=== PATIENT | female | born 1955 | race Caucasian/White ===

== ENCOUNTER 2019-09-05 10:56 | Outpatient (RCR) | payer BC, SELFPAY | END 2019-09-05 23:59 | disposition home or self-care (01) | LOC: ANHAUDIO 10:56 | PROVIDERS: PCP Family Medicine | DX: Z46.1 Encounter for fitting and adjustment of hearing aid (principal) | CPT/HCPCS: 92593 ==

== ENCOUNTER 2020-02-08 09:03 | Outpatient (CLI) | payer BC, SELFPAY | END 2020-02-08 09:04 | disposition home or self-care (01) | PROVIDERS: PCP Family Medicine; Visit Provider Family Medicine | DX: Z01.10 Encounter for examination of ears and hearing without abnormal findings (principal); H90.3 Sensorineural hearing loss, bilateral | CPT/HCPCS: 92557; 92567 ==

== ENCOUNTER 2021-06-01 08:40 | Outpatient (CLI) | payer MEDICARE, SELFPAY ==
--- NOTE | ~2021-06-01 | MM_ITS ---
EXAMINATION: MM screening sg BI w osbaldo HISTORY: Screening mammogram TECHNIQUE: Craniocaudal and mediolateral oblique 3-D tomosynthesis images were obtained and synthetic 2-D images were generated. CAD analysis was submitted and interpreted. COMPARISON: No prior mammogram is available for comparison at this institution. BREAST PARENCHYMAL COMPOSITION: There are scattered areas of fibroglandular density. FINDINGS: RIGHT BREAST: There is possible architectural distortion in the posterior third of upper outer quadra nt of the breasts. LEFT BREAST: There is a possible mass in the posterior third of the slightly outer breast. IMPRESSION: 1. Bilateral breast findings as described above which may represent the patient's baseline however no comparison is currently available. 2. Comparison with prior mammograms is necessary. BI-RADS Category 0: Incomplete: Needs comparison with prior mammograms. Reviewed, dictated and finalized at location A. OR SOFTWARE ANALYST IMPRESSION: 1. Bilateral breast findings as described above which may represent the patient 's baseline however no comparison is currently available. 2. Comparison with prior mammograms is necessary. BI-RADS Category 0: Incomplete: Needs comparison with prior mammograms.
== END 2021-06-01 08:41 | disposition home or self-care (01) ==
LOC: ANHIMG 08:42
PROVIDERS: PCP Family Medicine; Visit Provider Physician Assistant
DX: Z12.31 Encounter for screening mammogram for malignant neoplasm of breast (principal); R92.8 Other abnormal and inconclusive findings on diagnostic imaging of breast
CPT/HCPCS: 77063; 77067

== ENCOUNTER 2021-06-26 00:28 | Day surgery (SDC) | payer MEDICARE, SELFPAY ==
[2021-06-10 14:49] VITALS: BMI 24.5
--- NOTE | 2021-06-26 07:32 | WPDANESEPPF ---
Anes - Initial Pre Proc Eval Procedure: Operation Date: 06/26/21 11:00 Proposed Procedures p Screening Colonoscopy - Fransisco Valentine MD Date/Time: 06/26/21 07:32 Surgeon: Fransisco Valentine MD Pre Op Diagnosis: neoplasm screening Patient Data Age: 66 Gender: F Height: 1.55 m Weight: 59 kg Allergies Allergy/AdvReac Type Severity Reaction Status Date / Time methimazole Allergy rash Verified 06/26/21 09:46 Home Medications Medication Instructions Recorded Confirmed Type calcium carbonate 600 mg calcium 630 mg PO DAILY tablet 03/06/20 06/26/21 History (1,500 mg) tablet cholecalciferol (vitamin D3) 25 1,500 unit PO DAILY tablet 03/06/20 06/26/21 History mcg (1,000 unit) tablet fluticasone propionate 50 2 spray NASAL DAILY 03/06/20 06/26/21 History mcg/actuation nasal spray,suspension propylthiouracil 50 mg tablet 25 mg PO DAILY tablet 03/06/20 06/26/21 History albuterol sulfate 90 mcg/actuation 2 puff INHALATION Q4H PRN #8.5 gm 09/03/20 06/26/21 Rx aerosol inhaler atorvastatin 10 mg tablet 10 mg PO DAILY #90 tablet 03/30/21 06/26/21 Rx omega-3 fatty acids 1,000 mg 2,000 mg PO DAILY cap 03/30/21 06/26/21 History capsule Patient hx anesthesia problems: none Family hx anesthesia problems: none Results Review: All pre-operative results and documents have been reviewed as part of the pre-operative evaluation. [facility] Past Medical History Medical History (Updated 06/26/21 @ 10:29 by Fransisco Valentine MD) Hepatitis C antibody test negative (12/29/20) Mild intermittent asthma, uncomplicated Pure hypercholesterolemia Surgical History Surgical History (Updated 03/30/21 @ 09:24 by Leigh Soto CMA) H/O eye surgery (~2017) History of cholecystectomy (~1997) History of knee replacement (~2011) Right History of total left knee replacement (~2020) Family History Family History Father Hypertension Mother Hypertension Other Family history of cardiovascular disease No family history of malignant neoplasm Social History Social History (Updated 03/30/21 @ 09:25 by Leigh Soto [employer]) Alcohol intake: current Alcohol use details: 1 per month Living arrangements: with family Spiritual care concerns: No Anes - Eval Final PreProcedure Day of Procedure 06/26/21 07:32 Patient weight: normal Heart: regular rate and rhythm Lungs: clear to auscultation and normal air movement Airway: Mallampati scale class II Neurological: alert and oriented Last oral intake: >/= 8 hours ASA classification: III Emergent: no Anesthetic plan: proceed Anesthesia type and monitoring: general GIVS and standard monitoring Results Review: All pre-operative results and documents have been reviewed as part of the pre-operative evaluation. Informed Consent: The patient's anesthetic plan and its attendant risks and benefits were discussed with the patient/family/POA. Questions were solicited and answers provided to the satisfaction of the patient/family/POA.
[2021-06-26 09:47] VITALS: BP 146/87; PULSE 64; RESP 16; TEMP 36.6; O2SAT 100
[2021-06-26] MEDS: LACTATED RINGERS 1,000 ML 150 ML IV CONT (09:56)
[2021-06-26] MEDS: AMPICILLIN 2 GM/NS 100 ML 2 GM/100 ML BAG IVPB (09:59)
--- NOTE | 2021-06-26 10:28 | WPDGICN ---
Assessment and Plan Assessment and plan (1) Encounter for screening colonoscopy: Code(s): Z12.11 - Encounter for screening for malignant neoplasm of colon Status: Acute Assessment and Plan: Patient presents today for screening colonoscopy. She appears to be at average risk for colon polyps. GI Consult Note Consult date/time: 06/26/21 10:28 HPI: Mary Corrales is a 66 year old female Presents for screening colonoscopy. Patient reports that her current weight appetite and bowel movements are normal. She denies abdominal pain. She has had no bleeding. Family history is noncontributory. Her last colonoscopy 10 years ago was unremarkable. Patient's past history is significant for Graves disease she has been treated for exophthalmos with good results. Review of Systems Review of Systems: All systems reviewed & are unremarkable except as noted in HPI and below PMFSH Past Medical History Medical History (Updated 06/26/21 @ 10:29 by Fransisco Valentine MD) Hepatitis C antibody test negative (12/29/20) Mild intermittent asthma, uncomplicated Pure hypercholesterolemia Surgical History Surgical History (Updated 03/30/21 @ 09:24 by Leigh Soto [facility]) H/O eye surgery (~2017) History of cholecystectomy (~1997) History of knee replacement (~2011) Right History of total left knee replacement (~2020) Family History Family History Father Hypertension Mother Hypertension Other Family history of cardiovascular disease No family history of malignant neoplasm Social History Social History (Updated 03/30/21 @ 09:25 by eLigh Soto CMA) Alcohol intake: current Alcohol use details: 1 per month Living arrangements: with family Spiritual care concerns: No Meds Home Medications and Allergies Home Medications Medication Instructions Recorded Confirmed Type calcium carbonate 600 mg calcium 630 mg PO DAILY tablet 03/06/20 06/26/21 History (1,500 mg) tablet cholecalciferol (vitamin D3) 25 1,500 unit PO DAILY tablet 03/06/20 06/26/21 History mcg (1,000 unit) tablet fluticasone propionate 50 2 spray NASAL DAILY 03/06/20 06/26/21 History mcg/actuation nasal spray,suspension propylthiouracil 50 mg tablet 25 mg PO DAILY tablet 03/06/20 06/26/21 History albuterol sulfate 90 mcg/actuation 2 puff INHALATION Q4H PRN #8.5 gm 09/03/20 06/26/21 Rx aerosol inhaler atorvastatin 10 mg tablet 10 mg PO DAILY #90 tablet 03/30/21 06/26/21 Rx omega-3 fatty acids 1,000 mg 2,000 mg PO DAILY cap 03/30/21 06/26/21 History capsule Allergies Allergy/AdvReac Type Severity Reaction Status Date / Time methimazole Allergy rash Verified 06/26/21 09:46 Vital Signs Vital Signs - 24 hr 06/26/21 09:47 Temperature 97.9 F Pulse Rate 64 Respiratory Rate 16 Blood Pressure 146/87 H Pulse Oximetry 100 Exam Narrative: Physical exam reveals patient to be alert. Vital signs stable. HEENT exam is unremarkable. Patient is anicteric. Lungs are clear to auscultation and percussion. Heart is without murmur or extra sounds. Abdominal exam bowel sounds are present soft nontender with no organomegaly. Digital external rectal exam is normal.
[2021-06-26 10:53] VITALS: BP 118/74; PULSE 58; RESP 16; O2SAT 99
[2021-06-26 11:03] VITALS: BP 120/78; PULSE 62; RESP 18; O2SAT 100
[2021-06-26 11:13] VITALS: BP 136/84; PULSE 60; RESP 16; O2SAT 100
== END 2021-06-26 11:22 | disposition home or self-care (01) ==
PROVIDERS: PCP Family Medicine; Visit Provider Internal Medicine Gastroenterology
PROC: 0DJD8ZZ Inspection of Lower Intestinal Tract, Via Natural or Artificial Opening Endoscopic (ICD-10-PCS; CPT 45378; principal; 2021-06-26 11:00)
DX: Z12.11 Encounter for screening for malignant neoplasm of colon (principal); K64.8 Other hemorrhoids; K63.5 Polyp of colon; J45.20 Mild intermittent asthma, uncomplicated; Z79.51 Long term (current) use of inhaled steroids; E78.00 Pure hypercholesterolemia, unspecified; Z90.49 Acquired absence of other specified parts of digestive tract
CPT/HCPCS: 45385; 88305; J0290; J2704; J7120

== ENCOUNTER 2022-09-08 13:50 | Outpatient (CLI) | payer MEDICARE, SELFPAY ==
--- NOTE | ~2022-09-08 | DEXA_ITS ---
Bone Density Report Name: JUDE ASHTON Age: 67 Sex: Female Ethnicity: White Date of : 1955 Indication: postmenopausal; screening for osteoporosis; asthma or emphysema; Referring Provider: AVRIL MALDONADO Study: Bone densitometry was performed. Exam Date: September 08, 2022 Accession number: [id number] Bone Density: Region BMD T-score Z-score Classification AP Spine(L1-L4) 0.896 -1.4 0.6 Osteopenia Femoral Neck (Left) 0.640 -1.9 -0.2 Osteopenia Total Hip (Left) 0.761 -1.5 -0.1 Osteopenia Femoral Neck (Right) 0.653 -1.8 -0.1 Osteopenia Total Hip (Right) 0.812 -1.1 0.3 Osteopenia Total Hip Mean 0.787 -1.3 0.1 Osteopenia World Health Organization criteria for BMD impression classify patients as: Normal (T-score at or above -1.0), Osteopenia (T-score between -1.0 and -2.5), or Osteoporosis (T-score at or below -2.5). 10-year Fracture Risk(1): Major Osteoporotic Fracture 11% Hip Fracture 1.6% Reported Risk Factors: [place] (), Neck BMD=0.640, BMI=24.8 (1) FRAX(R) Version 3.08. Fracture probability calculated for an untreated patient. Fracture probability may be lower if the patient has received treatment. Clinical Information Provided by Patient: Has used the following medications: Vitamin D, Calcium Has the following medical conditions: Asthma or Emphysema Patient maximum height was 61 Menopause Age: 50 Drinks caffeinated beverages Onset of menses at age 14 Number of children 2 Impression: The patient has low bone mass, based on the Left Femoral Neck T-score. The patient has an estimated ten-year risk of hip fracture of 1.6% and an estimated ten-year risk of major fracture of 11%, based on the WHO FRAX algorithm. Discussion: BONE DENSITY IS LOW AT ONE OR MORE SKELETAL SITES. This patient's lowest T-score is low at one or more skeletal sites. It meets the World Health Organization's (WHO) criteria for ?low bone mass? (T-score between -1.0 and -2.5). The patient's 10-year risk of fracture as calculated by FRAX is less than the threshold where pharmacological therapy is recommended by the National Osteoporosis Foundation (NOF). However, all treatment decisions require clinical judgment and consideration of individual patient factors, including patient preferences, comorbidities, previous drug use, risk factors not captured in the FRAX model (e.g., frailty, falls, vitamin D deficiency, increased bone turnover, interval significant decline in bone density) and possible under or overestimation of fracture risk by FRAX. The patient should follow a healthful lifestyle (good nutrition with adequate calcium and vitamin D, and appropriate weight-bearing exercise). Follow-Up: Consider repeating this study in 2 to 3 years to reassess this patient's status, or sooner if there
--- NOTE | ~2022-09-08 | MM_ITS ---
EXAMINATION: MM screening [facility] BI w osbaldo HISTORY: Screening TECHNIQUE: Craniocaudal and mediolateral oblique 3-D tomosynthesis images were obtained and synthetic 2-D images were generated. CAD analysis was submitted and interpreted. COMPARISON: Comparison to multiple prior studies sequentially, with oldest reviewed study dated 02/05. BREAST PARENCHYMAL COMPOSITION: There are scattered areas of fibroglandular density. FINDINGS: There is no evidence of suspicious mass, calcification, or architectural distortion to sugg est malignancy in either breast. There has been no suspicious interval change. IMPRESSION: 1. No mammographic evidence of malignancy. 2. Recommend routine screening mammography in one year. BI-RADS Category 1: Negative Reviewed, dictated and finalized at location A.
== END 2022-09-08 13:51 | disposition home or self-care (01) ==
LOC: ANHIMG 13:51
PROVIDERS: PCP Family Medicine; Visit Provider Physician Assistant
DX: Z12.31 Encounter for screening mammogram for malignant neoplasm of breast (principal); Z78.0 Asymptomatic menopausal state; M85.88 Other specified disorders of bone density and structure, other site; M85.852 Other specified disorders of bone density and structure, left thigh; M85.851 Other specified disorders of bone density and structure, right thigh
CPT/HCPCS: 77063; 77067; 77080

== ENCOUNTER 2023-11-30 09:09 | Outpatient (CLI) | payer MEDICARE, SELFPAY ==
[2023-11-30 12:45] LABS: Basophils Absolute Auto 0.1 K/mm3 (0.0-0.1); Basophils Percent Auto 1.2 % (0.2-1.2); Eosinophils Absolute Auto 0.4 K/mm3 (0-0.3); Eosinophils Percent Auto 8.1 % (0-4.4); Hematocrit 43.9 % (37.0-47.0); Hemoglobin 13.8 g/dL (12.0-15.0); Immature Granulocyte Absolute 0.02 K/mm3 (0.00-0.031); Immature Granulocyte Percent A 0.4 % (0-0.5); Lymphocytes Absolute Auto 1.42 K/mm3 (0.9-3.2); Lymphocytes Percent Auto 28.2 % (18.3-44.2); Mean Corpuscular HGB Conc 31.4 g/dl (32-36); Mean Corpuscular Hemoglobin 30.3 pg (26-34); Mean Corpuscular Volume 96.5 fl (80-100); Mean Platelet Volume 9.2 fl (7.4-10.4); Monocytes Absolute Auto 0.5 K/mm3 (0.1-0.6); Monocytes Percent Auto 8.9 % (2.6-8.5); Neutrophils Absolute Auto 2.7 K/mm3 (1.3-6.7); Neutrophils Percent Auto 53.2 % (45.5-73.1); Platelet Count Result 358 k/mm3 (150-375); Red Blood Count 4.55 M/mm3 (4.2-5.4); Red Cell Distribution Width 13.5 % (11.5-14.5)
[2023-11-30 13:15] LABS: Alanine Aminotransferase 17 U/L (6-35); Alkaline Phosphatase 82 U/L (38-126); Anion Gap 5 mmol/L (4-12); Aspartate Amino Transferase 36 U/L (14-36); Blood Urea Nitrogen 21 mg/dL (7-17); Calcium 9.4 mg/dL (8.4-10.2); Carbon Dioxide 28 mmol/L (22-30); Chloride 109 mmol/L (98-107); Cholesterol 197 mg/dL (0-200); Estimated Glomerular Filt Rate 49; Glucose 73 mg/dL (65-110); HDL Direct 60 mg/dL; Potassium 4.9 mmol/L (3.4-5.0); Sodium 142 mmol/L (137-145); Triglycerides 80 mg/dL (<150)
[2023-11-30 13:33] LABS: LDL Cholesterol Direct 112 mg/dL
== END 2023-11-30 09:10 | disposition home or self-care (01) ==
PROVIDERS: PCP Family Medicine; Visit Provider Physician Assistant
DX: E78.00 Pure hypercholesterolemia, unspecified (principal); E05.00 Thyrotoxicosis with diffuse goiter without thyrotoxic crisis or storm; Z79.899 Other long term (current) drug therapy
CPT/HCPCS: 36415; 80053; 80061; 85025

== ENCOUNTER 2023-12-07 07:51 | Outpatient (CLI) | payer MEDICARE, SELFPAY ==
--- NOTE | ~2023-12-07 | MM_ITS ---
EXAMINATION: MM screening [facility] BI w osbaldo HISTORY: Screening mammogram TECHNIQUE: Craniocaudal and mediolateral oblique 3-D tomosynthesis images were obtained and synthetic 2-D images were generated. CAD analysis was submitted and interpreted. COMPARISON: 09/08/2022, 06/01/2021, 03/07/2020 BREAST PARENCHYMAL COMPOSITION:Not Dense. There are scattered areas of fibroglandular density. FINDINGS: No suspicious mass, calcification, or architectural distortion are identified in either lulú ast to suggest malignancy. There has been no suspicious interval change. IMPRESSION: No mammographic evidence of malignancy. Recommend routine screening mammography in one year. BI-RADS Category 1: Negative Reviewed, dictated and finalized at location .
== END 2023-12-07 07:52 | disposition home or self-care (01) ==
LOC: ANHIMG 07:53
PROVIDERS: PCP Family Medicine; Visit Provider Physician Assistant
DX: Z12.31 Encounter for screening mammogram for malignant neoplasm of breast (principal)
CPT/HCPCS: 77063; 77067

== ENCOUNTER 2025-03-20 12:16 | Outpatient (CLI) | payer MEDICARE, SELFPAY ==
--- NOTE | ~2025-03-20 | DEXA_ITS ---
Bone Density Report Name: JUDE ASHTON Age: 70 Sex: Female Ethnicity: White Date of : 1955 Indication: hyperparathyroidism; asthma or emphysema; Referring Provider: SHORTY MAHONEY Study: Bone densitometry was performed. Exam Date: March 20, 2025 Accession number: [id number] Bone Density: Region BMD T-score Z-score Classification AP Spine(L1-L4) 0.814 -2.1 0.0 Osteopenia Femoral Neck (Left) 0.635 -1.9 -0.1 Osteopenia Total Hip (Left) 0.856 -0.7 0.8 Normal Femoral Neck (Right) 0.645 -1.8 0.0 Osteopenia Total Hip (Right) 0.907 -0.3 1.2 Normal Femoral Neck Mean 0.640 -1.9 -0.1 Osteopenia Total Hip Mean 0.882 -0.5 1.0 Normal World Health Organization criteria for BMD impression classify patients as: Normal (T-score at or above -1.0), Osteopenia (T-score between -1.0 and -2.5), or Osteoporosis (T-score at or below -2.5). 10-year Fracture Risk(1): Major Osteoporotic Fracture 11% Hip Fracture 2.1% Reported Risk Factors: [place] (), Neck BMD=0.635, BMI=23.9 (1) FRAX(R) Version 3.08. Fracture probability calculated for an untreated patient. Fracture probability may be lower if the patient has received treatment. Clinical Information Provided by Patient: Has used the following medications: Vitamin D, Calcium Has the following medical conditions: Asthma or Emphysema, Hyperparathyroidism Patient maximum height was 61.00 Menopause Age: 55 No regular weight bearing exercise Does not regularly consume dairy products Drinks caffeinated beverages Onset of menses at age 13 Number of children 2 Impression: The patient has low bone mass, based on the Total Spine T-score. Discussion: BONE DENSITY IS LOW AT ONE OR MORE SKELETAL SITES. This patient's lowest T-score is low at one or more skeletal sites. It meets the World Health Organization's (WHO) criteria for ?low bone mass? (T-score between -1.0 and -2.5). The patient's 10-year risk of fracture as calculated by FRAX is less than the threshold where pharmacological therapy is recommended by the National Osteoporosis Foundation (NOF). However, all treatment decisions require clinical judgment and consideration of individual patient factors, including patient preferences, comorbidities, previous drug use, risk factors not captured in the FRAX model (e.g., frailty, falls, vitamin D deficiency, increased bone turnover, interval significant decline in bone density) and possible under or overestimation of fracture risk by FRAX. The patient should follow a healthful lifestyle (good nutrition with adequate calcium and vitamin D, and appropriate weight-bearing exercise). Follow-Up: Consider repeating this study in 2 to 3 years to reassess this patient's status, or sooner if there is some new clinical indication. Reported by: ANNIE on 03/20/2025 12:49:00 PM. Reviewed, dictated and finalized at location A.
--- NOTE | ~2025-03-20 | MM_ITS ---
EXAMINATION: MM screening sg BI w osbaldo HISTORY: Screening TECHNIQUE: Craniocaudal and mediolateral oblique 3-D tomosynthesis images were obtained and synthetic 2-D images were generated. CAD analysis was submitted and interpreted. COMPARISON: Comparison to multiple prior studies sequentially, with oldest reviewed study dated , 02/05/2019 BREAST PARENCHYMAL COMPOSITION: There are scattered areas of fibroglandular density. FINDINGS: There is no evidence of suspicious mass, calcification, or architectural distortion to suggest malignancy in either breast. IMPRESSION: 1. No mammographic evidence of malignancy. 2. Recommend routine screening mammography in one year. BI-RADS Category 1: Negative Reviewed, dictated and finalized at location B.
== END 2025-03-20 12:17 | disposition home or self-care (01) ==
LOC: CHSIMG 12:18
PROVIDERS: PCP Family Medicine; Visit Provider Nurse Practitioner Family
DX: Z12.31 Encounter for screening mammogram for malignant neoplasm of breast (principal); Z78.0 Asymptomatic menopausal state; M85.89 Other specified disorders of bone density and structure, multiple sites
CPT/HCPCS: 77063; 77067; 77080